=== PATIENT | female | born 1965 | race Asian ===

== ENCOUNTER → 2020-04-28 | Outpatient (CLI) | payer OTHER ==
[~2020-04-28] VITALS: Ht 165.1 cm; Wt 66.2 kg
[~2020-04-28] MED LIST: LIPITOR10 MG PO; VITAMIN D3100 MCG PO
--- NOTE | 2020-04-28 09:14 | P ---
[facility] [place] [address] PROCEDURE REPORT Name: LUIS ANGEL SINHA Room #: REG [facility].#: [id number] Admission: 04/28/20 Attend Phys: Gurmeet Mckeon MD Discharge: Date of : 65 Report #: [id number] THIS REPORT FOR: cc: Gurmeet Davalos MD, John H. MD Thesing,Gurmeet Russ MD ~ CC: Gurmeet Mckeon OUTPATIENT COLONOSCOPY REPORT BRIEF HISTORY: The patient is a 55-year-old woman with a history of colon polyps for surveillance colonoscopy. PREOPERATIVE DIAGNOSIS: History of colon polyps. POSTOPERATIVE DIAGNOSIS: Diminutive polyp at 40 cm. MEDICATIONS: Deep sedation with propofol per anesthesia. SPECIMEN: Polyp at 40 cm. ESTIMATED BLOOD LOSS: 3 mL. PROCEDURE: Colonoscopy to cecum and terminal ileum with biopsy. FINDINGS: Prior to propofol sedation, procedure of colonoscopy discussed with the patient as well as potential risks and its complications. She indicates she understands and desires to proceed. DESCRIPTION OF PROCEDURE: With the patient in left lateral decubitus position, digital examination was completed, which revealed no abnormalities. Subsequently, the Olympus video colonoscope was introduced into the rectum, advanced under direct vision to the cecum. Done with minimal difficulty. The cecum was identified by the ileocecal valve and the appendiceal orifice. I was able to visualize the distal segment of terminal ileum, which was inspected and noted to be unremarkable. At that point, the scope was slowly withdrawn and careful circumferential views obtained. Upon slow withdrawal of the scope, there were limitations of the prep. There were pools of liquidy stool material throughout. Most of these we could irrigate and aspirate away. However, there were several small pools particularly in the left colon that we could not completely remove. Other than these areas, reasonably good views were obtained of the colonic mucosa. No abnormalities were noted until left colon was reached and at 40 cm a diminutive polyp was seen and removed with biopsy. The scope was further withdrawn and no additional neoplastic lesions were seen. The scope was withdrawn in the rectum. Upon retroflexion, no abnormalities were seen. Scope was withdrawn. The patient tolerated the procedure well. [facility] [address] [place] [address] PROCEDURE REPORT Name: LUIS ANGEL SINHA Room #: REG [facility]#: [id number] Admission: 04/28/20 Attend Phys: Gurmeet Mckeon MD Discharge: Date of : 65 Report #: [id number] CONDITION OF THE PATIENT UPON DISCHARGE: Following procedure, the patient drowsy, aroused, conversant and will be discharged home when fully ambulatory. INSTRUCTIONS TO THE PATIENT AND FAMILY AT THE TIME OF DISCHARGE: One diminutive polyp identified and removed today. There were some limitations of the prep. We will follow up on the pathology. However, due to limitations of the prep, I suggest return in 3 years for followup colonoscopy. Last colonoscopy was 5 years ago. Withdrawal time from the cecum was a little more than 12 minutes. <ELECTRONICALLY SIGNED> By: Gurmeet Mckeon MD 04/28/20 0914 [phone] Gurmeet Mckeon MD /nt
--- NOTE | 2020-04-29 17:07 | PATH ---
[facility] [address] [place] [address] PATHOLOGY RPT PROCEDURE Name: LUIS ANGEL SINHA Room #: REG [facility] M..#: [id number] Admission: 04/28/20 Date of : 65 Discharge: Report #: [id number] Path Case #: [id number] [facility] Accession Number: [id number] . 01 Material submitted: . colon - POLYP AT 40CM . 01 Clinical history: . History of polyps, colon polyp. . 02 Diagnosis: Polyp, at 40 cm, endoscopic biopsy: - Tubular adenoma. - Negative for high-grade dysplasia. (IUV:pit 04/29/2020) QTP 04/29/2020 1402 Local . 02 Electronically signed: . Adele Prince MD, Pathologist NPI- [id number] . 01 Gross description: . Received in formalin labeled "Nella, Chi Chin, polyp at 40 cm" is a 0.2 x 0.2 x 0.1 cm aggregate of yung-brown soft tissue fragments. The specimen is submitted entirely in A1. ([facility] [place]; 04/28/2020) [facility] 04/28/2020 1833 Local . 02 Pathologist provided ICD-10: D12.6 . 02 CPT . 168505 Specimen Comment: A courtesy copy of this report has been sent to [phone], [phone] Specimen Comment: [phone] Specimen Comment: Report sent to / DR BRAXTON Performed at: [address], [place] [id number] MD Sarbjit Alcantar MD Phone: [phone] Performed at: [address] [id number] MD Adele Prince MD Phone: [phone]
== END | disposition home or self-care (01) ==
LOC: GI 06:33 → PRE 13:52 → EDSTATUS 13:53 → GI 14:06
PROVIDERS: ATTEND Specialist
DX: Z12.11 Encounter for screening for malignant neoplasm of colon (principal); Z86.010 Personal history of colon polyps; D12.5 Benign neoplasm of sigmoid colon; E78.5 Hyperlipidemia, unspecified; Z98.890 Other specified postprocedural states; Z79.899 Other long term (current) drug therapy; Z11.59 Encounter for screening for other viral diseases
CPT/HCPCS: 62110; 62900